=== PATIENT | female | born 1995 | race Caucasian/White ===

== ENCOUNTER → 2017-12-16 | Outpatient (CLI) | payer OTHER ==
[2017-12-16] MEDS: IOHEXOL 300 MG/ML 50 ML VIAL. INT ART (13:49)
[2017-12-16] MEDS: LIDOCAINE 1% Multi-Dose 20 ML VIAL. ID (13:49)
[2017-12-16] MEDS: GADOBUTROL 7.5 MMOL/7.5 ML VIAL INT ART (13:49)
== END | disposition home or self-care (01) ==
LOC: KCIC 12:35
DX: M12.811 Other specific arthropathies, not elsewhere classified, right shoulder (principal)
CPT/HCPCS: 73040; 73222; A9585; Q9967